=== PATIENT | male | born 1970 | race Two or more races ===

== ENCOUNTER 2020-04-22 17:16 | Outpatient (REF) | payer OTHER, SELFPAY | END 2020-04-22 17:17 | disposition home or self-care (01) | LOC: HO.LAB 17:16 | PROVIDERS: PCP Internal Medicine; Visit Provider Internal Medicine | DX: Z20.828 Contact with and (suspected) exposure to other viral communicable diseases (principal) | CPT/HCPCS: C9803; U0003 ==

== ENCOUNTER 2020-07-28 08:04 | Outpatient (REF) | payer OTHER, SELFPAY ==
[2020-07-28 09:24] LABS: Alanine Aminotransferase 30 U/L (0-40); Albumin Level 4.3 g/dL (3.5-5.0); Alkaline Phosphatase 115 U/L (39-117); Anion Gap 11 (12-20); Aspartate Amino Transferase 28 U/L (5-37); Bilirubin Total < 0.2 mg/dL (0.0-1.0); Blood Urea Nitrogen 12 mg/dL (9-16); Carbon Dioxide 27 mmol/L (22-29); Chloride 105 mmol/L (96-108); Cholesterol 201 mg/dL; Estimated Glomerular Filt Rate > 60; Glucose Fasting 119 mg/dL (60-99); HDL Cholesterol 48 mg/dL; LDL Cholesterol Calculated 121 mg/dl; Potassium 4.3 mmol/L (3.3-5.1); Sodium 139 mmol/L (135-145); Total Protein 7.4 g/dL (6.5-8.0); Triglycerides 163 mg/dL
== END 2020-07-28 08:05 | disposition home or self-care (01) ==
LOC: HO.LAB 08:04
PROVIDERS: PCP Internal Medicine; Visit Provider Internal Medicine
DX: I10 Essential (primary) hypertension (principal); E78.5 Hyperlipidemia, unspecified
CPT/HCPCS: 36415; 80053; 80061

== ENCOUNTER 2021-03-17 06:28 | Outpatient (REF) | payer OTHER, SELFPAY ==
[2021-03-17 08:05] LABS: Alanine Aminotransferase 34 U/L (0-40); Albumin Level 4.3 g/dL (3.5-5.0); Alkaline Phosphatase 119 U/L (39-117); Anion Gap 11 (12-20); Aspartate Amino Transferase 23 U/L (5-37); Bilirubin Total 0.3 mg/dL (0.0-1.0); Blood Urea Nitrogen 10 mg/dL (9-16); Calcium 8.9 mg/dL (8.4-10.2); Carbon Dioxide 27 mmol/L (22-29); Chloride 105 mmol/L (96-108); Cholesterol 175 mg/dL; Estimated Glomerular Filt Rate > 60; Glucose Fasting 113 mg/dL (60-99); HDL Cholesterol 43 mg/dL; LDL Cholesterol Calculated 109 mg/dl; Potassium 4.2 mmol/L (3.3-5.1); Sodium 139 mmol/L (135-145); Total Protein 7.4 g/dL (6.5-8.0); Triglycerides 116 mg/dL
== END 2021-03-17 06:29 | disposition home or self-care (01) ==
LOC: HO.LAB 06:28
PROVIDERS: PCP Internal Medicine; Visit Provider Internal Medicine
DX: E78.5 Hyperlipidemia, unspecified (principal); R73.02 Impaired glucose tolerance (oral)
CPT/HCPCS: 36415; 80053; 80061

== ENCOUNTER 2021-11-20 06:26 | Outpatient (REF) | payer OTHER, SELFPAY ==
[2021-11-20 07:46] LABS: Alanine Aminotransferase 29 U/L (0-40); Albumin Level 4.3 g/dL (3.5-5.0); Alkaline Phosphatase 121 U/L (39-117); Anion Gap 14 (12-20); Aspartate Amino Transferase 25 U/L (5-37); Bilirubin Total 0.3 mg/dL (0.0-1.0); Blood Urea Nitrogen 12 mg/dL (9-16); Calcium 8.6 mg/dL (8.4-10.2); Carbon Dioxide 25 mmol/L (22-29); Chloride 106 mmol/L (96-108); Cholesterol 211 mg/dL; Estimated Glomerular Filt Rate > 60; Glucose Fasting 111 mg/dL (60-99); HDL Cholesterol 41 mg/dL; LDL Cholesterol Calculated 130 mg/dl; Potassium 4.1 mmol/L (3.3-5.1); Sodium 141 mmol/L (135-145); Total Protein 7.5 g/dL (6.5-8.0); Triglycerides 204 mg/dL
== END 2021-11-20 06:27 | disposition home or self-care (01) ==
LOC: HO.LAB 06:26
PROVIDERS: PCP Internal Medicine; Visit Provider Internal Medicine
DX: E78.5 Hyperlipidemia, unspecified (principal); R73.02 Impaired glucose tolerance (oral); I10 Essential (primary) hypertension
CPT/HCPCS: 36415; 80053; 80061

== ENCOUNTER 2022-03-17 06:49 | Outpatient (REF) | payer OTHER, SELFPAY ==
[2022-03-17 07:51] LABS: Alanine Aminotransferase 31 U/L (0-40); Albumin Level 4.6 g/dL (3.5-5.0); Alkaline Phosphatase 144 U/L (39-117); Anion Gap 17 (12-20); Aspartate Amino Transferase 22 U/L (5-37); Bilirubin Total 0.3 mg/dL (0.0-1.0); Blood Urea Nitrogen 13 mg/dL (9-16); Calcium 9.3 mg/dL (8.4-10.2); Carbon Dioxide 24 mmol/L (22-29); Chloride 104 mmol/L (96-108); Cholesterol 175 mg/dL; Estimated Glomerular Filt Rate > 60; Glucose Fasting 112 mg/dL (60-99); HDL Cholesterol 45 mg/dL; LDL Cholesterol Calculated 100 mg/dl; Potassium 4.4 mmol/L (3.3-5.1); Sodium 141 mmol/L (135-145); Total Protein 7.9 g/dL (6.5-8.0); Triglycerides 154 mg/dL
== END 2022-03-17 06:50 | disposition home or self-care (01) ==
LOC: HO.LAB 06:49
PROVIDERS: PCP Internal Medicine; Visit Provider Internal Medicine
DX: I10 Essential (primary) hypertension (principal); E78.5 Hyperlipidemia, unspecified; Z12.5 Encounter for screening for malignant neoplasm of prostate
CPT/HCPCS: 36415; 80053; 80061; 84153

== ENCOUNTER 2022-08-02 07:05 | Outpatient (REF) | payer OTHER, SELFPAY ==
[2022-08-02 08:30] LABS: Alanine Aminotransferase 25 U/L (0-40); Albumin Level 4.1 g/dL (3.5-5.0); Alkaline Phosphatase 119 U/L (39-117); Anion Gap 13 (12-20); Aspartate Amino Transferase 17 U/L (5-37); Bilirubin Total 0.3 mg/dL (0.0-1.0); Blood Urea Nitrogen 13 mg/dL (9-16); Calcium 8.9 mg/dL (8.4-10.2); Carbon Dioxide 24 mmol/L (22-29); Chloride 108 mmol/L (96-108); Cholesterol 154 mg/dL; Estimated Glomerular Filt Rate > 60; Glucose Fasting 108 mg/dL (60-99); HDL Cholesterol 40 mg/dL; LDL Cholesterol Calculated 92 mg/dl; Potassium 4.2 mmol/L (3.3-5.1); Sodium 141 mmol/L (135-145); Total Protein 6.9 g/dL (6.5-8.0); Triglycerides 113 mg/dL
== END 2022-08-02 07:06 | disposition home or self-care (01) ==
LOC: HO.LAB 07:05
PROVIDERS: PCP Internal Medicine; Visit Provider Internal Medicine
DX: I10 Essential (primary) hypertension (principal); E78.5 Hyperlipidemia, unspecified
CPT/HCPCS: 36415; 80053; 80061

== ENCOUNTER 2022-12-01 16:56 | Outpatient (AMB) | payer OTHER, SELFPAY ==
[2022-12-01 17:12] VITALS: BP 134/80; BMI 37.8
--- NOTE | 2022-12-01 17:12 | A.OFFPC_ITS ---
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 Accompanied by: Self / Same As Patient Allergies lisinopril Adverse Reaction (Intermediate, Verified 12/01/22 17:36) cough Medication List - Last Reconciled 12/01/22 by Elizabeth Paet MD amlodipine 5 mg PO DAILY 90 days atorvastatin 80 mg PO BEDTIME 90 days ibuprofen 800 mg PO Q8H PRN 30 days losartan 50 mg PO DAILY 90 days Tobacco use date assessed: 08/04/22 Dental Screening Dental Screen Date: 12/01/22 Did you have a dental visit in the last 12 months?: Yes Did you have a dental problem in the last 6 months where you did not have access to dental care?: No Was dental information given to patient?: Patient has dentist HPI HPI Comments History of Present Illness Details This is a 52 year old male that comes for his physical exam. Has never had a colonoscopy and I will refer him again. Labs were discussed. No chest pain or shortness of breath. [facility] Medical History BMI 38.0-38.9,adult Chronic GERD Dyslipidemia Essential hypertension History of alcohol abuse Impaired glucose tolerance Surgical History History of laparoscopic appendectomy Family History Father Prostate cancer Mother Breast cancer Colon cancer Social History Housing: House Alcohol intake: current Alcohol intake frequency: a few times a month Alcohol type: beer Patient Tobacco Use Status: Current everyday Tobacco user Tobacco use type: Cigarette Cigarettes Per Day: 5 e-Cigarette/Vaping Use: Never Used Second Hand Smoke Exposure: No service: No Current occupational status: employed Current occupational exposures/hazards: No Cognitive needs: No Hearing needs: No Vision needs: No Questionnaire Thrive Questionnaire Date Thrive assessed: 08/04/22 ISAAC-7 AMB Questionnaire ISAAC-7 Date ISAAC - 7 assessed: 08/04/22 Source: Developed by Drs. Juan Kat, Luisa Bob, Williams Campos and colleagues, with an educational kam from [facility]. Review of Systems Const All systems reviewed & are unremarkable except as noted in HPI and below Eyes Reports no additional complaints, Denies change in vision and Denies other visual disturbances Card Denies chest pain at rest, Denies chest pain with activity, Denies edema, Denies irregular heart rhythm, Denies claudication, Denies dyspnea, Denies dyspnea on exertion, Denies orthopnea, Denies paroxysmal nocturnal dyspnea and Denies slow heart rate Resp Denies cough, Denies dyspnea and Denies dyspnea on exertion GI Denies abdominal pain, Denies change in bowel habits, Denies excessive flatus, Denies nausea and Denies vomiting Denies urinary hesitancy, Denies urinary incontinence and Denies urinary urgency Musc Denies abnormal gait, Denies atrophy, Denies deformity and Denies limited range of motion Skin/Breast Denies bleeding lesions, Denies changing lesions and Denies rash Neuro Denies abnormal gait and Denies lack of coordination Physical exam (Primary Care) Vital Signs: Last Vital Signs BP 134/80 12/01/22 17:12 BMI result Body Mass Index 37.8 Tobacco/Smoking Status: Tobacco use Status Tobacco use date assessed 08/04/22 12/01/22 17:25 Patient Tobacco Use Status Current everyday Tobacco 12/01/22 17:25 Tobacco use type Cigarette 12/01/22 17:25 e-Cigarette/Vaping Use Never Used 12/01/22 17:25 Thrive Assessment: Date of Thrive Assessment Date Thrive assessed 08/04/22 12/01/22 17:25 Const Orientation/consciousness: patient oriented x3 HENMT Head: Yes normal to inspection, Yes normocephalic and Yes atraumatic Ears: external ears normal Eyes General: appearance normal, both eyes and all related structures Eyelids: Yes eyelids normal Conjunctivae: conjunctivae normal Neck Neck: Yes normal visual inspection and Yes supple Resp Effort & Inspection: normal respiratory effort Auscultation: clear to auscultation bilaterally Cardio Jugular venous distension: no JVD Rate: regular rate Rhythm: regular rhythm Heart sounds: S1 normal heart sound present and S2 normal heart sound present GI Inspection: Yes normal to inspection Palpation (GI): Soft to palpation and nontender Auscultation: normal bowel sounds Skin General skin exam: no rashes or lesions noted Neuro General: patient oriented x3 and no focal motor deficits Extrem General: Yes full ROM Psych Appearance: grossly normal Assessment and Plan Assessment & Plan (1) Physical exam: Code(s): Z00.00 - Encounter for general adult medical examination without abnormal findings Plan: Repeat in a year. Orders: Orders Comprehensive [place]. Panel Fast Today Z00.00 - Encounter for general adult medical examination without abnormal findings Lipid Panel Today E78.5 - Hyperlipidemia, unspecified Referrals Gastroenterology Referral Z12.11 - Encounter for screening for malignant neoplasm of colon Coding Level of Care Code Est Pt Prev Care 40-64y(64587) Diagnoses Physical exam Z00.00 Time Spent (min) 31
== END 2022-12-01 17:51 | disposition home or self-care (01) ==
PROVIDERS: PCP Internal Medicine; Visit Provider Internal Medicine
DX: Z00.00 Encounter for general adult medical examination without abnormal findings (principal)
CPT/HCPCS: 99396

== ENCOUNTER 2023-04-05 07:10 | Outpatient (REF) | payer OTHER, SELFPAY ==
[2023-04-05 08:30] LABS: Alanine Aminotransferase 28 U/L (0-40); Albumin Level 4.3 g/dL (3.5-5.0); Alkaline Phosphatase 100 U/L (39-117); Anion Gap 11 (12-20); Aspartate Amino Transferase 23 U/L (5-37); Bilirubin Total 0.4 mg/dL (0.0-1.0); Blood Urea Nitrogen 9 mg/dL (9-16); Calcium 9.1 mg/dL (8.4-10.2); Carbon Dioxide 27 mmol/L (22-29); Chloride 104 mmol/L (96-108); Cholesterol 170 mg/dL (<200); Estimated Glomerular Filt Rate > 60; Glucose Fasting 114 mg/dL (60-99); HDL Cholesterol 46 mg/dL (>40); LDL Cholesterol Calculated 100 mg/dL (<100); Potassium 3.6 mmol/L (3.3-5.1); Sodium 138 mmol/L (135-145); Total Protein 7.7 g/dL (6.5-8.0); Triglycerides 124 mg/dL (<150)
== END 2023-04-05 07:11 | disposition home or self-care (01) ==
LOC: HO.LAB 07:10
PROVIDERS: PCP Internal Medicine; Visit Provider Internal Medicine
DX: Z00.00 Encounter for general adult medical examination without abnormal findings (principal); E78.5 Hyperlipidemia, unspecified
CPT/HCPCS: 36415; 80053; 80061

== ENCOUNTER 2023-04-11 17:01 | Outpatient (AMB) | payer OTHER, SELFPAY ==
--- NOTE | 2023-04-11 17:04 | A.OFFPC_ITS ---
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 Accompanied by: Self / Same As Patient Allergies lisinopril Adverse Reaction (Intermediate, Verified 04/11/23 17:11) cough Medication List - Last Reconciled 04/11/23 by Elizabeth Pate MD amlodipine 5 mg PO DAILY 90 days atorvastatin 80 mg PO BEDTIME 90 days ibuprofen 800 mg PO Q8H PRN 30 days losartan 50 mg PO DAILY 90 days Tobacco use date assessed: 08/04/22 Dental Screening Dental Screen Date: 04/11/23 Did you have a dental visit in the last 12 months?: No Did you have a dental problem in the last 6 months where you did not have access to dental care?: No Was dental information given to patient?: Patient has dentist HPI HPI Comments History of Present Illness Details This is a 53 year old male with hypertension, pure hypercholesterol emia, impaired glucose tolerance and lumbar pain that comes today for follow-up on his conditions. Cholesterol well control. Blood pressure stable. Elevated fasting blood glucose but denies any polyuria or polydipsia. Complains of some lumbar pain aggravated by activity with no radiation to the legs that is alleviated by ibuprofen as needed. No fever, bowel or bladder incontinence. No chest pain or shortness of breath. [facility] Medical History Chronic GERD BMI 38.0-38.9,adult Impaired glucose tolerance History of alcohol abuse Dyslipidemia Essential hypertension Surgical History History of laparoscopic appendectomy Family History Father Prostate cancer Mother Breast cancer Colon cancer Social History Housing: House Alcohol intake: current Alcohol intake frequency: a few times a month Alcohol type: beer Patient Tobacco Use Status: Current everyday Tobacco user Tobacco use type: Cigarette Cigarettes Per Day: 5 e-Cigarette/Vaping Use: Never Used Second Hand Smoke Exposure: No service: No Current occupational status: employed Current occupational exposures/hazards: No Cognitive needs: No Hearing needs: No Vision needs: No Questionnaire Thrive Questionnaire Date Thrive assessed: 08/04/22 ISAAC-7 AMB Questionnaire ISAAC-7 Date ISAAC - 7 assessed: 08/04/22 Source: Developed by Drs. Juan Kat, Luisa Bob, Williams Campos and colleagues, with an educational kam from [employer]. Review of Systems Const All systems reviewed & are unremarkable except as noted in HPI and below Eyes Reports no additional complaints, Denies change in vision and Denies other visual disturbances Card Denies chest pain at rest, Denies chest pain with activity, Denies edema, Denies irregular heart rhythm, Denies claudication, Denies dyspnea, Denies dyspnea on exertion, Denies orthopnea, Denies paroxysmal nocturnal dyspnea and Denies slow heart rate Resp Denies cough, Denies dyspnea and Denies dyspnea on exertion GI Denies abdominal pain, Denies change in bowel habits, Denies excessive flatus, Denies nausea and Denies vomiting Denies urinary hesitancy, Denies urinary incontinence and Denies urinary urgency Musc Denies abnormal gait, Denies atrophy, Denies deformity and Denies limited range of motion Skin/Breast Denies bleeding lesions, Denies changing lesions and Denies rash Neuro Denies abnormal gait and Denies lack of coordination Physical exam (Primary Care) Vital Signs: Last Vital Signs BP 130/90 H 04/11/23 17:05 BMI result Body Mass Index 37.9 Tobacco/Smoking Status: Tobacco use Status Tobacco use date assessed 08/04/22 04/11/23 17:10 Patient Tobacco Use Status Current everyday Tobacco 04/11/23 17:10 Tobacco use type Cigarette 04/11/23 17:10 e-Cigarette/Vaping Use Never Used 04/11/23 17:10 Thrive Assessment: Date of Thrive Assessment Date Thrive assessed 08/04/22 04/11/23 17:10 Eyes General: appearance normal, both eyes and all related structures Eyelids: Yes eyelids normal Conjunctivae: conjunctivae normal Neck Neck: Yes normal visual inspection and Yes supple Resp Effort & Inspection: normal respiratory effort Auscultation: clear to auscultation bilaterally Cardio Jugular venous distension: no JVD Rate: regular rate Rhythm: regular rhythm Heart sounds: S1 normal heart sound present and S2 normal heart sound present Extrem General: Yes full ROM Office Procedures Flu Questionnaire Does the patient have a severe egg allergy?: No Immunizations flu vacc [id number] 6mos up(PF) 60 mcg(15 mcgx4)/0.5 mL IM syringe Performing Provider: Elizabeth Pate MD [facility] [place] Documented (not given) by: CARMELLA Norris on 04/11/23 17:11 Reason Not Given: Patient Refused Assessment and Plan Assessment & Plan (1) Essential hypertension: Code(s): I10 - Essential (primary) hypertension Plan: Continue amlodipine and losartan. Blood pressure goal is equal or less than 130/80. (2) Dyslipidemia: Code(s): E78.5 - Hyperlipidemia, unspecified Plan: Continue statins. (3) Impaired glucose tolerance: Code(s): R73.02 - Impaired glucose tolerance (oral) Plan: Try to follow a low-carbohydrate diet. (4) Lumbar pain: Code(s): M54.50 - Low back pain, unspecified Plan: Continue ibuprofen only for severe pain as needed. Orders: Orders Influenza [id number] Immunization Today Z23 - Encounter for immunization Comprehensive [place]. Panel Fast 7 Months R73.02 - Impaired glucose tolerance (oral) Lipid Panel 7 Months E78.5 - Hyperlipidemia, unspecified Vitamin D 25-OH Total 7 Months E55.9 - Vitamin D deficiency, unspecified Medications: Refilled atorvastatin 80 mg PO BEDTIME 90 tabs 1RF 90 days E78.5 - Hyperlipidemia, unspecified amlodipine 5 mg PO DAILY 90 tabs 1RF 90 days ibuprofen 800 mg PO Q8H PRN 90 tabs 0RF pain 30 days Coding Level of Care Code Est Pt Level 4 (48550) Diagnoses Essential hypertension I10 Dyslipidemia E78.5 Impaired glucose tolerance R73.02 Lumbar pain M54.50 Time Spent (min) 21
[2023-04-11 17:05] VITALS: BP 130/90; BMI 37.9
== END 2023-04-11 17:18 | disposition home or self-care (01) ==
PROVIDERS: PCP Internal Medicine; Visit Provider Internal Medicine
DX: I10 Essential (primary) hypertension (principal); E78.5 Hyperlipidemia, unspecified; R73.02 Impaired glucose tolerance (oral); M54.50 Low back pain, unspecified
CPT/HCPCS: 99214

== ENCOUNTER 2023-11-30 06:31 | Outpatient (REF) | payer OTHER, SELFPAY ==
[2023-11-30 07:34] LABS: Alanine Aminotransferase 29 U/L (0-40); Albumin Level 4.2 g/dL (3.5-5.0); Alkaline Phosphatase 113 U/L (39-117); Anion Gap 13 (12-20); Aspartate Amino Transferase 26 U/L (5-37); Bilirubin Total 0.5 mg/dL (0.0-1.0); Blood Urea Nitrogen 11 mg/dL (9-16); Calcium 9.3 mg/dL (8.4-10.2); Carbon Dioxide 25 mmol/L (22-29); Chloride 106 mmol/L (96-108); Cholesterol 195 mg/dL (<200); Estimated Glomerular Filt Rate > 60; Glucose Fasting 114 mg/dL (60-99); HDL Cholesterol 46 mg/dL (>40); LDL Cholesterol Calculated 118 mg/dL (<100); Potassium 4.1 mmol/L (3.3-5.1); Sodium 140 mmol/L (135-145); Total Protein 7.7 g/dL (6.5-8.0); Triglycerides 157 mg/dL (<150)
[2023-11-30 07:48] LABS: Vitamin D 25-OH Total 27.4 ng/mL (>30)
== END 2023-11-30 06:32 | disposition home or self-care (01) ==
LOC: HO.LAB 06:31
PROVIDERS: PCP Internal Medicine; Visit Provider Internal Medicine
DX: R73.02 Impaired glucose tolerance (oral) (principal); E78.5 Hyperlipidemia, unspecified; E55.9 Vitamin D deficiency, unspecified
CPT/HCPCS: 36415; 80053; 80061; 82306

== ENCOUNTER 2023-12-05 16:48 | Outpatient (AMB) | payer OTHER, SELFPAY ==
[2023-12-05 16:49] VITALS: BP 150/88; BMI 38.5
--- NOTE | 2023-12-05 16:49 | MHC.PC.OV ---
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 Accompanied by: Self / Same As Patient Allergies lisinopril Adverse Reaction (Intermediate, Verified 12/05/23 17:04) cough Medication List - Last Reconciled 12/05/23 by Elizabeth Pate MD amlodipine 5 mg PO DAILY 90 days atorvastatin 80 mg PO BEDTIME 90 days ibuprofen 800 mg PO Q8H PRN 30 days losartan 50 mg PO DAILY 90 days Tobacco use date assessed: 12/05/23 Dental Screening Dental Screen Date: 12/05/23 Did you have a dental visit in the last 12 months?: Yes Did you have a dental problem in the last 6 months where you did not have access to dental care?: No Was dental information given to patient?: Patient has dentist HPI HPI Comments History of Present Illness Details This is a 53-year-old male that comes for his physical exam. Has never had a colonoscopy and will be refer again. He is obese and was advised to diet and exercise. He is a smoker and was advised to quit. Blood pressure elevated and losartan will be increased. [facility] Medical History Chronic GERD BMI 38.0-38.9,adult Impaired glucose tolerance History of alcohol abuse Dyslipidemia Essential hypertension Surgical History History of laparoscopic appendectomy Family History Father Prostate cancer Mother Breast cancer Colon cancer Social History Housing: House Alcohol intake: current Alcohol intake frequency: a few times a month Alcohol type: beer Patient Tobacco Use Status: Current everyday Tobacco user Tobacco use type: Cigarette Cigarettes Per Day: 5 e-Cigarette/Vaping Use: Never Used Second Hand Smoke Exposure: No service: No Current occupational status: employed Current occupational exposures/hazards: No Cognitive needs: No Hearing needs: No Vision needs: No Questionnaire PHQ-9 Over the last 2 weeks, how often have you been bothered by any of the following problems? 1. Little interest or pleasure in doing things: not at all 2. Feeling down, depressed, or hopeless: not at all 3. Trouble falling or staying asleep, or sleeping too much: not at all 4. Feeling tired or having little energy: not at all 5. Poor appetite or overeating: not at all 6. Feeling bad about yourself - or that you are a failure or have let yourself or your family down: not at all 7. Trouble concentrating on things, such as reading the newspaper or watching television: not at all 8. Moving or speaking so slowly that other people could have noticed. Or the opposite - being so fidgety or restless that you have been moving around a lot more than usual: not at all 9. Thoughts that you would be better off or of hurting yourself in some way: not at all Total score: 0 Depression Screening Interpretation: Negative Depression Screening Done: Yes 46505 - PHQ-9 Billing: Yes Source: Developed by Drs. Juan Kat, Luisa Bob, Williams Campos and colleagues, with an educational kam from [employer]. Thrive Questionnaire Date Thrive assessed: 12/05/23 I am a: Patient What is your living situation today?: I have a steady place to live Within the past 12 months, did the food you bought not last and you didn't have the money to get more?: Never true Within the past 12 months, did you worry whether your food would run out before you got money to buy more?: Never true Do you have trouble paying for medicines?: No Do you have trouble getting transportation to medical appointments?: No Do you have trouble paying your heating and electricity bill?: No Do you have trouble taking care of your child, family member or friend?: No Do you have trouble with day-to-day activities such as bathing, preparing meals, shopping, managing finances, etc.?: No Are you currently unemployed and looking for a job?: No Are you interested in more education?: No Please select the resources that you would like help with: None Currently or been in a relationship where the following occur: No concerns reported THRIVE Score: 0 AUDIT C Alcohol Use Questionnaire (AUDIT-C) 1. How often do you have a drink containing alcohol?: 2-4 times a month 2. How many drinks containing alcohol do you have on a typical day when you are drinking?: 1 or 2 3. How often do you have six or more drinks on one occasion?: Never Total Score: 2 ISAAC-7 AMB Questionnaire ISAAC-7 Date ISAAC - 7 assessed: 12/05/23 Feeling nervous, anxious, or on edge: 0 = Not at all Not being able to stop or control worryin = Not at all Worrying too much about different things: 0 = Not at all Trouble relaxin = Not at all Being so restless that it is hard to sit still: 0 = Not at all Becoming easily annoyed or irritable: 0 = Not at all Feeling afraid as if something awful might happen: 0 = Not at all Total ISAAC-7 score (0-4 normal; 5-9 mild; 10-14 moderate; 15-21 severe): 0 Source: Developed by Drs. Juan Kat, Luisa Bob, Williams Campos and colleagues, with an educational kam from [employer]. ISAAC-7 Assessment Billing ISAAC-7 Assessment Tool: ISAAC-7 Assessment 45296 Review of Systems Const All systems reviewed & are unremarkable except as noted in HPI and below Card Denies chest pain at rest, Denies chest pain with activity, Denies edema, Denies irregular heart rhythm, Denies claudication, Denies dyspnea, Denies dyspnea on exertion, Denies orthopnea, Denies paroxysmal nocturnal dyspnea and Denies slow heart rate Resp Denies cough, Denies dyspnea and Denies dyspnea on exertion GI Denies abdominal pain, Denies change in bowel habits, Denies excessive flatus, Denies nausea and Denies vomiting Denies urinary hesitancy, Denies urinary incontinence and Denies urinary urgency Musc Denies atrophy, Denies deformity and Denies limited range of motion Physical exam (Primary Care) Vital Signs: Last Vital Signs BP 150/88 H 12/05/23 16:49 BMI result Body Mass Index 38.5 BMI Assessment/Plan discussion: High BMI High, discussed plan: lifestyle, weight reduction, dietary and physical activity Tobacco/Smoking Status: Tobacco use Status Tobacco use date assessed 12/05/23 12/05/23 16:50 Patient Tobacco Use Status Current everyday Tobacco 12/05/23 16:50 Tobacco use type Cigarette 12/05/23 16:50 e-Cigarette/Vaping Use Never Used 12/05/23 16:50 Are you ready to quit: No Tobacco cessation counseling provided: Yes Items discussed: [employer]uit[employer] Relapse Prevention: discussed the importance of a supportive environment, discussed negative mood or depression after quitting, weight gain after smoking is common and discussed dietary, exercise and/or lifestyle changes Number of minutes spent counselin CPT code: 97905 - 4-10 Minutes PHQ-9: PHQ-9 Score PHQ-9: Total score 0 12/05/23 16:56 Depression Screening Interpretation: Negative Thrive Assessment: Date of Thrive Assessment Date Thrive assessed 12/05/23 12/05/23 16:56 Currently or been in a relationship where the following occur: No concerns reported HENMT Head: Yes normal to inspection, Yes normocephalic and Yes atraumatic Ears: external ears normal Eyes General: appearance normal, both eyes and all related structures Eyelids: Yes eyelids normal Conjunctivae: conjunctivae normal Neck Neck: Yes normal visual inspection and Yes supple Resp Effort & Inspection: normal respiratory effort Auscultation: clear to auscultation bilaterally Cardio Jugular venous distension: no JVD Rate: regular rate Rhythm: regular rhythm Heart sounds: S1 normal heart sound present and S2 normal heart sound present GI Inspection: Yes normal to inspection Palpation (GI): Soft to palpation and nontender Auscultation: normal bowel sounds Skin General skin exam: no rashes or lesions noted Neuro General: no focal motor deficits Extrem General: Yes full ROM Psych Appearance: grossly normal Assessment and Plan Assessment & Plan (1) Physical exam: Code(s): Z00.00 - Encounter for general adult medical examination without abnormal findings Plan: Repeat in a year. Orders: Orders Lipid Panel 4 Months E78.5 - Hyperlipidemia, unspecified Comprehensive [place]. Panel Fast 4 Months Z00.00 - Encounter for general adult medical examination without abnormal findings Referrals Gastroenterology Referral Z12.11 - Encounter for screening for malignant neoplasm of colon Medications: New semaglutide (weight loss) (Wegovy) administer weeks 1 through 4 of therapy 0.25 mg (0.5 mL) subcut QWEEK 4 weeks 2 mL 0RF losartan 100 mg PO DAILY 90 days 90 tabs 1RF Discontinued losartan Discontinued Reason: Patient Completed Course 50 mg PO DAILY 90 days 90 tabs 1RF Coding Level of Care Code Est Pt Prev Care 40-64y(18900) Diagnoses Physical exam Z00.00 Additional Codes ISAAC-7 Assessment Billing - ISAAC-7 Assessment Tool: ISAAC-7 Assessment 66002 ([id number]) Vital Signs *Quality* - CPT code: 57158 - 4-10 Minutes ([id number]) Time Spent (min) 34
[2023-12-05 17:19] VITALS: BP 150/90
== END 2023-12-05 17:13 | disposition home or self-care (01) ==
PROVIDERS: PCP Internal Medicine; Visit Provider Internal Medicine
DX: Z00.00 Encounter for general adult medical examination without abnormal findings (principal); E66.9 Obesity, unspecified; Z68.38 Body mass index [BMI] 38.0-38.9, adult; I10 Essential (primary) hypertension
CPT/HCPCS: 99396

== ENCOUNTER 2024-02-23 11:01 | Outpatient (AMB) | payer OTHER, SELFPAY ==
[2024-02-23 11:02] VITALS: BP 142/82; PULSE 82; O2SAT 97; BMI 38.1
--- NOTE | 2024-02-23 11:02 | MHC.OFFVIS ---
Vital Signs 02/23/24 11:02 Height 5 ft 11 in Weight 272 lb 14.916 oz BMI 38.1 BP 142/82 H Blood Pressure Location Rt brachial Position Sitting Pulse 82 Pulse Source Pulse Oximeter Pulse Oximetry (%) 97 Oxygen Delivery Method Room Air Intake Visit Reasons: [place] Intake Note: Relevant Flags or Indicators ? Requires Continuous Mining Machine Coal Miner? Malissa Ibarra presents in office today for a scheduled colo consult. Pt had previous visit scheduled that was N/S'd. Pt has no previous hx of colo. CC; Since last visit; labs ordered ? via PCP within 6 mos. . Rx ordered ? yes/no. Diagnostics/images ordered ? none. Relevant GI Sx as reported per pt? None ? Hx of any recent surgeries? Pt denies any recent surgery. Does report pmhx of appendectomy quite some time ago. ? Pertinent FMHx? Mother (colon cancer) and Father (prostate cancer) Continuous Mining Machine Coal Miner Required: Yes Continuous Mining Machine Coal Miner Services: Continuous Mining Machine Coal Miner Present Continuous Mining Machine Coal Miner Name: [id number] Jaylin Allergies lisinopril Adverse Reaction (Intermediate, Verified 02/23/24 11:04) cough HPI HPI [place]: Details: 53-year-old male here for preprocedural meeting to discuss a screening colonoscopy. He is referred by Elizabeth Guzman of [facility] primary care. PMX Morbid obesity History of alcohol abuse Impaired fasting glucose High cholesterol Hypertension Low back pain * SURGICAL HISTORY Appendectomy * ALLERGIES Lisinopril-Cough * [facility] LABS: Laboratory Tests 11/30/23 06:39 Estimated GFR > 60 Total Bilirubin 0.5 AST 26 ALT 29 Alkaline Phosphatase 113 Lao #[id number] This is his first colonoscopy. He denies any bowel or upper GI problems. He denies any cardiac or respiratory problems He is fairly naive to anesthesia and sedation but he did not have any trouble with his appendectomy. No ID problems. He thinks that his mother had CRC, he has siblings who had scopes w/o polyps. [facility] Medical History (Updated 02/23/24 @ 12:44 by ISABELLE Khalil) Physical exam Screen for colon cancer Chronic GERD BMI 38.0-38.9,adult Impaired glucose tolerance History of alcohol abuse Dyslipidemia Essential hypertension Surgical History History of laparoscopic appendectomy Family History Father Prostate cancer Mother Breast cancer Colon cancer Social History Housing: House Alcohol intake: current Alcohol intake frequency: a few times a month Alcohol type: beer Patient Tobacco Use Status: Current everyday Tobacco user Tobacco use type: Cigarette Cigarettes Per Day: 5 e-Cigarette/Vaping Use: Never Used Second Hand Smoke Exposure: No service: No Current occupational status: employed Current occupational exposures/hazards: No Cognitive needs: No Hearing needs: No Vision needs: No Review of Systems Const Denies fatigue, Denies fever(s), Denies night sweats, Denies poor appetite and Denies weight loss Eyes Reports requires corrective lenses ENT Reports Normal hearing present, Denies dental pain, Denies dysphagia, Denies hearing loss, Denies mouth pain, Denies odynophagia, Denies throat swelling, Denies tongue swelling and Reports other (Dentition adequate) GI Details: Denies abdominal pain, Denies melena, Denies bloating, Denies hematochezia, Denies constipation, Denies GI cramping, Denies dysphagia, Denies excessive flatus, Denies early satiety, Denies heartburn, Denies diarrhea, Denies nausea, Denies odynophagia, Denies vomiting and Denies hematemesis Skin/Breast Denies pruritus, Denies lesions, Denies rash and Denies jaundice Neuro Reports Normal hearing present and Denies Abnormal speech present Endo Denies fatigue Aller/Immun Denies throat swelling and Denies tongue swelling Physical Exam Vital Signs: Last Vital Signs Pulse 82 02/23/24 11:02 BP 142/82 H 02/23/24 11:02 Pulse Ox 97 02/23/24 11:02 Oxygen Delivery Method Room Air 02/23/24 11:02 BMI result Body Mass Index 38.1 Const General: cooperative, no acute distress, well developed and well groomed Nutritional Appearance: well nourished and obese Orientation/consciousness: oriented to person, oriented to place and oriented to time Limitations: language barrier HEENT Head: Yes normocephalic and Yes atraumatic Eyes General: appearance normal, both eyes and all related structures Pupils: Equal, round and reactive pupils present Neck Neck: Yes normal visual inspection and Yes no lymphadenopathy Thyroid: Thyroid normal Resp Effort & Inspection: normal respiratory effort and able to speak in complete sentences Auscultation: clear to auscultation bilaterally Cardio Rate: regular rate Rhythm: regular rhythm Heart sounds: Normal, physiologic split S2 sound present Peripheral pulses: radial pulses present and posterior tibial pulses present GI Inspection: No distended, Yes Abdominal panniculus present, Yes obesity and Yes scar Palpation (GI): Soft to palpation, nontender, no guarding, not rigid and No hepatosplenomegaly present Percussion: Yes normal to percussion Auscultation: normal bowel sounds Rectal Exam - Male: Yes deferred Abdomen image: 1. surgical scar Skin General skin exam: no rashes or lesions noted, turgor normal, skin not dry, no jaundice, No spider nevi and no striae Rashes: no rashes Nails: normal Neuro General: oriented to person, oriented to place and oriented to time Cranial nerves: Yes Equal, round and reactive pupils present and Yes Normal hearing present Speech: No Abnormal speech present Extrem General: Yes normal to inspection, No clubbing, No cyanosis and No edema Psych Appearance: grossly normal and well kempt Mental Status: mental status grossly normal Speech and movement: Normal speech and movement present Affect: normal affect Attitude: cooperative Thought process: Normal thought process present and not confabulating Thought content: Normal thought content present Insight: Fair insight present (Psych) Judgement: Fair judgement present (Psych) Quality Reporting (2019) Adult ([facility] ) Smoking risk assessment performed?: Yes Patient Tobacco Use Status: Current everyday Tobacco user Assessment & Plan Assessment & Plan (1) Pre-op examination: Code(s): Z01.818 - Encounter for other preprocedural examination Category: Medical (2) BMI 38.0-38.9,adult: Code(s): Z68.38 - Body mass index [BMI] 38.0-38.9, adult Category: Medical (3) Family history of colon cancer in mother: Code(s): Z80.0 - Family history of malignant neoplasm of digestive organs Category: Medical Plan Lao #[id number] This is his first colonoscopy. He denies any bowel or upper GI problems. He denies any cardiac or respiratory problems He is fairly naive to anesthesia and sedation but he did not have any trouble with his appendectomy. No ID problems. He thinks that his mother had CRC, he has siblings who had scopes w/o polyps. Orders: Orders Colonoscopy - GI Use Only Today Z68.38 - Body mass index [BMI] 38.0-38.9, adult Medications: New sodium,potassium,mag sulfates 17.5-3.13-1.6 gram (Suprep Bowel Prep Kit) 480 mL orally; FOR COLONOSCOPY PREP 354 mL 0RF Coding Level of Care Code New Pt Level 3 (33282) Diagnoses Pre-op examination Z01.818 BMI 38.0-38.9,adult Z68.38 Family history of colon cancer in mother Z80.0
== END 2024-02-23 11:56 | disposition home or self-care (01) ==
PROVIDERS: PCP Internal Medicine; Visit Provider Nurse Practitioner
DX: Z01.818 Encounter for other preprocedural examination (principal); Z68.38 Body mass index [BMI] 38.0-38.9, adult; Z80.0 Family history of malignant neoplasm of digestive organs
CPT/HCPCS: 99203

== ENCOUNTER → 2024-02-23 11:01 | Outpatient (BNVA) | payer OTHER, SELFPAY | PROVIDERS: PCP Internal Medicine; Visit Provider Nurse Practitioner | DX: Z01.818 Encounter for other preprocedural examination (principal); E66.01 Morbid (severe) obesity due to excess calories; Z80.0 Family history of malignant neoplasm of digestive organs; Z68.38 Body mass index [BMI] 38.0-38.9, adult | CPT/HCPCS: 99202 ==

== ENCOUNTER 2024-03-28 07:23 | Outpatient (REF) | payer OTHER, SELFPAY ==
[2024-03-28 08:31] LABS: Alanine Aminotransferase 32 U/L (0-40); Albumin Level 4.3 g/dL (3.5-5.0); Alkaline Phosphatase 102 U/L (39-117); Anion Gap 11 (12-20); Aspartate Amino Transferase 28 U/L (5-37); Bilirubin Total 0.4 mg/dL (0.0-1.0); Blood Urea Nitrogen 13 mg/dL (9-16); Calcium 9.1 mg/dL (8.4-10.2); Carbon Dioxide 26 mmol/L (22-29); Chloride 107 mmol/L (96-108); Cholesterol 110 mg/dL (<200); Estimated Glomerular Filt Rate > 60; Glucose Fasting 104 mg/dL (60-99); HDL Cholesterol 36 mg/dL (>40); LDL Cholesterol Calculated 61 mg/dL (<100); Potassium 3.9 mmol/L (3.3-5.1); Sodium 140 mmol/L (135-145); Total Protein 7.4 g/dL (6.5-8.0); Triglycerides 68 mg/dL (<150)
== END 2024-03-28 07:24 | disposition home or self-care (01) ==
LOC: HO.LAB 07:23
PROVIDERS: PCP Internal Medicine; Visit Provider Internal Medicine
DX: Z00.00 Encounter for general adult medical examination without abnormal findings (principal); E78.5 Hyperlipidemia, unspecified
CPT/HCPCS: 36415; 80053; 80061

== ENCOUNTER 2024-04-02 16:45 | Outpatient (AMB) | payer OTHER, SELFPAY ==
--- NOTE | 2024-04-02 17:05 | A.OFFPC_ITS ---
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 Required: No Accompanied by: Self / Same As Patient Allergies lisinopril Adverse Reaction (Intermediate, Verified 04/02/24 17:25) cough Medication List - Last Reconciled 04/02/24 by Elizabeth Pate MD amlodipine 5 mg PO DAILY 90 days atorvastatin 80 mg PO BEDTIME 90 days ibuprofen 800 mg PO Q8H PRN 30 days losartan 100 mg PO DAILY 90 days semaglutide (weight loss) (Wegovy) 1 mg (0.5 mL) subcut QWEEK 4 weeks semaglutide (weight loss) (Wegovy) 1.7 mg (0.75 mL) subcut QWEEK 4 weeks sodium,potassium,mag sulfates 17.5-3.13-1.6 gram (Suprep Bowel Prep Kit) 480 mL orally; FOR COLONOSCOPY PREP Tobacco use date assessed: 12/05/23 Dental Screening Dental Screen Date: 12/05/23 HPI HPI Comments History of Present Illness Details The patient is a 54-year-old male presenting with a follow-up visit for management of essential hypertension, hyperlipidemia, and obesity. The patient has been under treatment for hypertension with Amlodipine 5 mg daily and Losartan 100 mg daily. At the current visit, blood pressure readings are noted to be excellent at 122/80 mmHg. He was diagnosed with hyperlipidemia and is being treated with Atorvastatin 80 mg nightly, which has resulted in a significant reduction in cholesterol levels from 195 mg/dL to 110 mg/dL. The patient is also managing obesity and has been on Wegovy starting at 1 mg weekly, now increased to 1.7 mg weekly, with a noted weight loss from 276 lbs in November to 259 lbs at present. He denies current use of Lisinopril due to a confirmed allergy. Back pain is managed with Ibuprofen 800 mg as needed. The patient continues to smoke cigarettes, approximately one every three days, and has not yet committed to smoking cessation despite discussing available resources. Renal function tests have shown a GFR of greater than 60 mL/min/1.73 m? and serum glucose levels have decreased from 114 mg/dL to 104 mg/dL. [facility] Medical History Physical exam Screen for colon cancer Chronic GERD BMI 38.0-38.9,adult Impaired glucose tolerance History of alcohol abuse Dyslipidemia Essential hypertension Surgical History History of laparoscopic appendectomy Family History Father Prostate cancer Mother Breast cancer Colon cancer Social History Housing: House Alcohol intake: current Alcohol intake frequency: a few times a month Alcohol type: beer Patient Tobacco Use Status: Current everyday Tobacco user Tobacco use type: Cigarette Cigarettes Per Day: 5 e-Cigarette/Vaping Use: Never Used Second Hand Smoke Exposure: No service: No Current occupational status: employed Current occupational exposures/hazards: No Cognitive needs: No Hearing needs: No Vision needs: No Questionnaire Thrive Questionnaire Date Thrive assessed: 12/05/23 ISAAC-7 AMB Questionnaire ISAAC-7 Date ISAAC - 7 assessed: 12/05/23 Source: Developed by Drs. Juan Kat, Luisa Bob, Williams Campos and colleagues, with an educational kam from [employer]. Review of Systems Const All systems reviewed & are unremarkable except as noted in HPI and below Card Denies chest pain at rest, Denies chest pain with activity, Denies edema, Denies irregular heart rhythm, Denies claudication, Denies dyspnea, Denies dyspnea on exertion, Denies orthopnea, Denies paroxysmal nocturnal dyspnea and Denies slow heart rate Resp Denies cough, Denies dyspnea and Denies dyspnea on exertion GI Denies abdominal pain, Denies change in bowel habits, Denies excessive flatus, Denies nausea and Denies vomiting Denies urinary hesitancy, Denies urinary incontinence and Denies urinary urgency Musc Denies abnormal gait, Denies atrophy, Denies deformity and Denies limited range of motion Skin/Breast Denies bleeding lesions, Denies changing lesions and Denies rash Neuro Denies abnormal gait and Denies lack of coordination Physical exam (Primary Care) Vital Signs: Last Vital Signs BP 122/80 04/02/24 17:07 BMI result Body Mass Index 36.1 BMI Assessment/Plan discussion: High BMI High, discussed plan: lifestyle, weight reduction, dietary and physical activity Tobacco/Smoking Status: Tobacco use Status Tobacco use date assessed 12/05/23 04/02/24 17:11 Patient Tobacco Use Status Current everyday Tobacco 04/02/24 17:11 Tobacco use type Cigarette 04/02/24 17:11 e-Cigarette/Vaping Use Never Used 04/02/24 17:11 Are you ready to quit: No Tobacco cessation counseling provided: Yes Items discussed: Nicotine replacement and [employer]uitWorks Relapse Prevention: discussed the importance of a supportive environment, discussed extending NRT, discussed negative mood or depression after quitting, weight gain after smoking is common and discussed dietary, exercise and/or lifestyle changes Number of minutes spent counselin CPT code: 70854 - 4-10 Minutes Thrive Assessment: Date of Thrive Assessment Date Thrive assessed 12/05/23 04/02/24 17:11 Resp Effort & Inspection: normal respiratory effort Auscultation: clear to auscultation bilaterally Cardio Jugular venous distension: no JVD Rate: regular rate Rhythm: regular rhythm Heart sounds: S1 normal heart sound present and S2 normal heart sound present Extrem General: Yes full ROM Office Procedures Flu Questionnaire Does the patient have a severe egg allergy?: No Immunizations Fluarix Triv [id number] (PF) 45 mcg (15 mcg x 3)/0.5 mL IM syringe Performing Provider: Elizabeth Pate MD [place] [facility] [place] [facility] Documented (not given) by: CARMELLA Norris on 04/02/24 17:12 Reason Not Given: Patient Refused Coding Level of Care Code Est Pt Level 4 (21126) Complex EM visit Add On G2211 Diagnoses Lumbar pain M54.50 Essential hypertension I10 Dyslipidemia E78.5 Chronic GERD K21.9 Additional Codes Vital Signs *Quality* - CPT code: 23934 - 4-10 Minutes ([id number]) Time Spent (min) 24 Assessment & Plan Assessment & Plan (1) Lumbar pain: Code(s): M54.50 - Low back pain, unspecified Category: Medical (2) Essential hypertension: Code(s): I10 - Essential (primary) hypertension Category: Medical (3) Dyslipidemia: Code(s): E78.5 - Hyperlipidemia, unspecified Category: Medical (4) Chronic GERD: Code(s): K21.9 - Gastro-esophageal reflux disease without esophagitis Category: Medical Plan - 2.4 mg weekly for obesity if well-tolerated, monitor for nausea, vomiting, diarrhea; revert to 1.7 mg if necessary: - Discuss smoking cessation options further and encourage lifestyle modifications to support weight management. - Schedule colonoscopy in June as planned. - Routine lab evaluations in four months to assess metabolic parameters. Patient was informed and verbally consented to the use of an ambient scribe for clinic note documentation during this visit. During our discussion, I reaffirmed the management strategies for essential hypertension, hyperlipidemia, and obesity, noting the effectiveness of current therapies in controlling blood pressure and cholesterol levels. I explained the transition plan to Wegovy 2.4 mg, highlighting potential side effects such as nausea and the need to revert if side effects are intolerable. I provided various resources for smoking cessation, including nicotine patches and online support through [employer]. We also discussed the upcoming colonoscopy and I underscored the importance of consistent follow-up and monitoring his condition at regular intervals to ensure comprehensive care. He is aware of the next appointment timeline and the specific labs to be repeated to track his health improvements. Orders: Orders Influenza [id number] Immunization Today Z23 - Encounter for immunization Comprehensive [place]. Panel Fast 4 Months K21.9 - Gastro-esophageal reflux disease without esophagitis Lipid Panel 4 Months E78.5 - Hyperlipidemia, unspecified Medications: New semaglutide (weight loss) (Wegovy) 2.4 mg (0.75 mL) subcut QWEEK 3 mL 1RF 4 weeks Discontinued semaglutide (weight loss) (Wegovy) administer weeks 9 through 12 of therapy Discontinued Reason: Patient Completed Course 1 mg (0.5 mL) subcut QWEEK 4 weeks 2 mL 1RF E66.9 - Obesity, unspecified, E78.5 - Hyperlipidemia, unspecified, I10 - Essential (primary) hypertension, Z68.37 - Body mass index [BMI] 37.0-37.9, adult Patient Instructions: - Continue current medications as prescribed. - Monitor blood pressure at home and report any significant changes. - Increase Wegovy to 2.4 mg weekly when able; note any adverse effects. - Consider smoking cessation options provided; monitor weight to prevent gain if cessation occurs. - Return for labs in four months and for colonoscopy appointment in June. - Maintain a healthy lifestyle and monitor dietary habits to support overall health.
[2024-04-02 17:07] VITALS: BP 122/80; BMI 36.1
== END 2024-04-02 17:34 | disposition home or self-care (01) ==
PROVIDERS: PCP Internal Medicine; Visit Provider Internal Medicine
DX: M54.50 Low back pain, unspecified (principal); I10 Essential (primary) hypertension; E78.5 Hyperlipidemia, unspecified; K21.9 Gastro-esophageal reflux disease without esophagitis; Z23 Encounter for immunization

== ENCOUNTER → 2024-04-02 16:45 | Outpatient (BNVA) | payer OTHER, SELFPAY | PROVIDERS: PCP Internal Medicine; Visit Provider Internal Medicine | DX: M54.50 Low back pain, unspecified (principal); I10 Essential (primary) hypertension; E78.5 Hyperlipidemia, unspecified; K21.9 Gastro-esophageal reflux disease without esophagitis | CPT/HCPCS: 90471; 99212 ==

== ENCOUNTER → 2024-07-20 15:00 | Outpatient (BNVA) | payer OTHER, SELFPAY | PROVIDERS: PCP Internal Medicine; Visit Provider Surgery ==

== ENCOUNTER 2024-08-06 08:13 | Outpatient (AMB) | payer OTHER, SELFPAY ==
[2024-08-06 11:43] VITALS: BMI 34.6
--- NOTE | 2024-08-06 11:43 | A.OFFVIS_ITS ---
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* Can Filling And Closing Machine Tender Required: Yes Can Filling And Closing Machine Tender Services: Can Filling And Closing Machine Tender Present Information Interpreted: clinical only Allergies lisinopril Adverse Reaction (Intermediate, Verified 08/06/24 11:46) cough Medication List - Last Reconciled 08/06/24 by Lucio Palmer MD amlodipine 5 mg PO DAILY 90 days atorvastatin 80 mg PO BEDTIME 90 days ibuprofen 800 mg PO Q8H PRN 30 days losartan 100 mg PO DAILY 90 days HPI HPI 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*: Details: Start time: 11.33am, End time: 12.03pm ?I spent 25 minutes speaking with the patient on the phone plus an additional 5 minutes reviewing and updating records for a total of 30 minutes HPI Comments Details: Previous weight loss efforts: David 28lbs December 2023 to July 2024 Wakes up: 4.30am, Sleeps: 10pm Breakfast: 6am (Bagel) Lunch: 12pm (rice, or Subway sandwich) Dinner: 5pm (rice and chicken) Snacks: 7-8pm (crackers) Exercise: none Beverages: Coffee (1 cup/d with cream and sugar), tea: none, soda: none, juice: Gatorade, ETOH: none PFSH Medical History (Updated 08/06/24 @ 11:56 by Lucio Palmer MD) DJD (degenerative joint disease) BMI 34.0-34.9,adult Obesity Physical exam Screen for colon cancer Chronic GERD BMI 38.0-38.9,adult Impaired glucose tolerance History of alcohol abuse Dyslipidemia Essential hypertension Surgical History History of laparoscopic appendectomy Family History Father Prostate cancer Mother Breast cancer Colon cancer Social History (Updated 07/20/24 @ 15:36 by Cathie Tubbs [facility]) Housing: House Alcohol intake: former Patient Tobacco Use Status: Current everyday Tobacco user Tobacco use type: Cigarette Cigarettes Per Day: 5 e-Cigarette/Vaping Use: Never Used Second Hand Smoke Exposure: No service: No Current occupational status: employed Current occupational exposures/hazards: No Cognitive needs: No Hearing needs: No Vision needs: No Physical Exam Vital Signs: BMI result Body Mass Index 34.6 Quality Reporting (2019) Adult ([facility] 138/2/22/69) Smoking risk assessment performed?: Yes Patient Tobacco Use Status: Current everyday Tobacco user Telehealth Telehealth Telehealth Platform: Telephone Location of provider rendering services: practice address Location of patient: address on file Patient Identification confirmed using: Name, : Yes Telehealth method: voice only Patient verbally consented to treatment: Yes Patient verbally consented to billing insurance company: Yes Patient informed of any privacy concerns related to visit: Yes Minutes spent on Phone/Video with Pt.: 30 Assessment & Plan Assessment & Plan (1) Obesity: Code(s): E66.9 - Obesity, unspecified Category: Medical Qualifiers: Obesity type: due to excess calories Obesity classification: adult class 1 (BMI 30 - 34.9) Serious obesity comorbidity presence: with serious comorbidity Body mass index: BMI 34.0-34.9 Qualified Code(s): E66.811 - Obesity, class 1; E66.09 - Other obesity due to excess calories; Z68.34 - Body mass index [BMI] 34.0-34.9, adult Plan: ?1.? Please buy the body composition scale we discussed and send me weight measurements as soon as possible and then once a week. 2. The best choice would be to purchase a stationary bike at home that can track calories. Let me know if you do so I can give you an exercise plan. Goal is to exercise for 150 minutes per week. 3. Goal is to lose at least 1.5-2lbs per week 4. Goal to lose a minimum of 10% of your weight, which is about 25lbs. Minimum weight goal: 223lbs 5. You have high blood pressure. Please take one per day. Buy a blood pressure monitor and start measuring your blood pressure daily in the morning and let me know the readings if they are below 120/70. 6. I ordered a medication to help you with the weight loss which is called Zepbound. My office will try to authorize it. Please let me know when you receive it so I can give you a meal and exercise plan. Common side effects include nausea, vomiting, constipation, diarrhea, abdominal pain. Please let me know if you develop any of these symptoms. 7. Please track the calories you consume daily and aim not to exceed the 1800 calories per day. Avoid high calorie drinks, fried, or high in fat foods as well as large amount of carbohydrates (sweets, potatoes, rice, or pasta).
== END 2024-08-06 12:04 | disposition home or self-care (01) ==
LOC: HO.HBS 08:13
PROVIDERS: PCP Internal Medicine; Visit Provider Surgery
DX: E66.811 Obesity, class 1 (principal); Z68.34 Body mass index [BMI] 34.0-34.9, adult
CPT/HCPCS: 99203

== ENCOUNTER 2024-12-20 12:32 | Outpatient (AMB) | payer OTHER, SELFPAY ==
--- NOTE | 2024-12-20 12:48 | A.OFFPC_ITS ---
Vital Signs 12/20/24 12:49 12/20/24 12:50 Height 5 ft 11 in 5 ft 11 in Weight 271 lb BMI 37.8 BP 130/80 Blood Pressure Location Lt brachial Lt brachial Position Sitting Sitting Respiration 18 Pulse 75 Pulse Source Pulse Oximeter Temp Source Temporal Artery Scan Pulse Oximetry (%) 96 Oxygen Delivery Method Room Air Room Air Intake Visit Reasons: physical Extractions Technologist Required: No Accompanied by: Self / Same As Patient Allergies lisinopril Adverse Reaction (Intermediate, Verified 12/20/24 13:05) cough Medication List - Last Reconciled 12/20/24 by Elizabeth Pate MD amlodipine 5 mg PO DAILY 90 days atorvastatin 80 mg PO BEDTIME 90 days ibuprofen 800 mg PO Q8H PRN 30 days losartan 100 mg PO DAILY 90 days Tobacco use date assessed: 12/20/24 Dental Screening Dental Screen Date: 12/20/24 Did you have a dental visit in the last 12 months?: No Did you have a dental problem in the last 6 months where you did not have access to dental care?: No Was dental information given to patient?: No HPI HPI Comments History of Present Illness Details The patient is a 54-year-old male presenting with an annual physical examination and preventative care discussion. He has a history of hypertension, managed with losartan and amlodipine, and reports an allergy to lisinopril. The patient is also on atorvastatin for hyperlipidemia. Family history is notable for prostate cancer in his father and colon and breast cancer in his mother. He smokes five cigarettes daily and is considering cessation. [facility] Medical History DJD (degenerative joint disease) BMI 34.0-34.9,adult Obesity Physical exam Screen for colon cancer Chronic GERD BMI 38.0-38.9,adult Impaired glucose tolerance History of alcohol abuse Dyslipidemia Essential hypertension Surgical History History of laparoscopic appendectomy Family History Father Prostate cancer Mother Breast cancer Colon cancer Social History Housing: House Alcohol intake: former Patient Tobacco Use Status: Current everyday Tobacco user Tobacco use type: Cigarette Cigarettes Per Day: 5 e-Cigarette/Vaping Use: Never Used Second Hand Smoke Exposure: No service: No Current occupational status: employed Current occupational exposures/hazards: No Cognitive needs: No Hearing needs: No Vision needs: No Questionnaire PHQ-9 Over the last 2 weeks, how often have you been bothered by any of the following problems? 1. Little interest or pleasure in doing things: not at all 2. Feeling down, depressed, or hopeless: not at all 3. Trouble falling or staying asleep, or sleeping too much: not at all 4. Feeling tired or having little energy: not at all 5. Poor appetite or overeating: not at all 6. Feeling bad about yourself - or that you are a failure or have let yourself or your family down: not at all 7. Trouble concentrating on things, such as reading the newspaper or watching television: not at all 8. Moving or speaking so slowly that other people could have noticed. Or the opposite - being so fidgety or restless that you have been moving around a lot more than usual: not at all 9. Thoughts that you would be better off or of hurting yourself in some way: not at all Total score: 0 Depression Screening Interpretation: Negative Depression Screening Done: Yes 19788 - PHQ-9 Billing: Yes Source: Developed by Drs. Juan Kat, Luisa Bob, Williams Campos and colleagues, with an educational kam from [employer]. Thrive Questionnaire Date Thrive assessed: 12/20/24 I am a: Patient What is your living situation today?: I have a steady place to live Within the past 12 months, did the food you bought not last and you didn't have the money to get more?: Never true Within the past 12 months, did you worry whether your food would run out before you got money to buy more?: Never true Do you have trouble paying for medicines?: No Do you have trouble getting transportation to medical appointments?: No Do you have trouble paying your heating and electricity bill?: No Do you have trouble taking care of your child, family member or friend?: No Do you have trouble with day-to-day activities such as bathing, preparing meals, shopping, managing finances, etc.?: No Are you currently unemployed and looking for a job?: No Are you interested in more education?: No Please select the resources that you would like help with: None Currently or been in a relationship where the following occur: No concerns reported THRIVE Score: 0 AUDIT C Alcohol Use Questionnaire (AUDIT-C) 1. How often do you have a drink containing alcohol?: 2-4 times a month 2. How many drinks containing alcohol do you have on a typical day when you are drinking?: 1 or 2 3. How often do you have six or more drinks on one occasion?: Never Total Score: 2 ISAAC-7 AMB Questionnaire ISAAC-7 Date ISAAC - 7 assessed: 12/20/24 Feeling nervous, anxious, or on edge: 0 = Not at all Not being able to stop or control worryin = Not at all Worrying too much about different things: 0 = Not at all Trouble relaxin = Not at all Being so restless that it is hard to sit still: 0 = Not at all Becoming easily annoyed or irritable: 0 = Not at all Feeling afraid as if something awful might happen: 0 = Not at all Total ISAAC-7 score (0-4 normal; 5-9 mild; 10-14 moderate; 15-21 severe): 0 Source: Developed by Drs. Juan Kat, Luisa Bob, Williams Campos and colleagues, with an educational kam from [employer]. ISAAC-7 Assessment Billing ISAAC-7 Assessment Tool: ISAAC-7 Assessment 95833 Review of Systems Const All systems reviewed & are unremarkable except as noted in HPI and below Card Denies chest pain at rest, Denies chest pain with activity, Denies edema, Denies irregular heart rhythm, Denies claudication, Denies dyspnea, Denies dyspnea on exertion, Denies orthopnea, Denies paroxysmal nocturnal dyspnea and Denies slow heart rate Resp Denies cough, Denies dyspnea and Denies dyspnea on exertion GI Denies abdominal pain, Denies change in bowel habits, Denies excessive flatus, Denies nausea and Denies vomiting Denies urinary hesitancy, Denies urinary incontinence and Denies urinary urgency Musc Denies abnormal gait, Denies atrophy, Denies deformity and Denies limited range of motion Skin/Breast Denies bleeding lesions, Denies changing lesions and Denies rash Neuro Denies abnormal gait, Denies behavioral changes and Denies lack of coordination Psych Denies behavioral changes Physical exam (Primary Care) Vital Signs: Last Vital Signs Pulse 75 12/20/24 12:50 Resp 18 12/20/24 12:49 BP 130/80 12/20/24 12:50 Pulse Ox 96 12/20/24 12:50 Oxygen Delivery Method Room Air 12/20/24 12:50 BMI result Body Mass Index 37.8 BMI Assessment/Plan discussion: High BMI High, discussed plan: lifestyle, weight reduction, dietary and physical activity Tobacco/Smoking Status: Tobacco use Status Tobacco use date assessed 12/20/24 12/20/24 12:51 Patient Tobacco Use Status Current everyday Tobacco 12/20/24 12:51 Tobacco use type Cigarette 12/20/24 12:51 e-Cigarette/Vaping Use Never Used 12/20/24 12:51 Are you ready to quit: No Relapse Prevention: discussed the importance of a supportive environment, discussed extending NRT, discussed negative mood or depression after quitting, weight gain after smoking is common and discussed dietary, exercise and/or lifestyle changes Number of minutes spent counselin CPT code: 18386 - 4-10 Minutes PHQ-9: PHQ-9 Score PHQ-9: Total score 0 12/20/24 12:51 Depression Screening Interpretation: Negative Thrive Assessment: Date of Thrive Assessment Date Thrive assessed 12/20/24 12/20/24 12:51 Currently or been in a relationship where the following occur: No concerns reported [facility] Head: Yes normal to inspection, Yes normocephalic and Yes atraumatic Ears: external ears normal Eyes General: appearance normal, both eyes and all related structures Eyelids: Yes eyelids normal Conjunctivae: conjunctivae normal Neck Neck: Yes normal visual inspection and Yes supple Resp Effort & Inspection: normal respiratory effort Auscultation: clear to auscultation bilaterally Cardio Jugular venous distension: no JVD Rate: regular rate Rhythm: regular rhythm Heart sounds: S1 normal heart sound present and S2 normal heart sound present GI Inspection: Yes normal to inspection Palpation (GI): Soft to palpation and nontender Auscultation: normal bowel sounds Skin General skin exam: no rashes or lesions noted Neuro General: no focal motor deficits Extrem General: Yes full ROM Psych Appearance: grossly normal Coding Level of Care Code Est Pt Prev Care 40-64y(77646) Diagnoses Physical exam Z00.00 Additional Codes ISAAC-7 Assessment Billing - ISAAC-7 Assessment Tool: ISAAC-7 Assessment 44955 ([id number]) PHQ-9 - 27028 - PHQ-9 Billing: Yes ([id number]) Vital Signs *Quality* - CPT code: 32090 - 4-10 Minutes ([id number]) Time Spent (min) 34 Assessment & Plan Assessment & Plan (1) Physical exam: Code(s): Z00.00 - Encounter for general adult medical examination without abnormal findings Category: Medical Plan The patient will be referred to Gastroenterology for a colonoscopy due to his family history of colon cancer. Blood pressure monitoring will continue, with the patient maintaining his current regimen of losartan and amlodipine. Continuation of atorvastatin is advised for hyperlipidemia management. Support for smoking cessation will be provided to assist the patient in quitting tobacco use. Patient was informed and verbally consented to the use of an ambient scribe for clinic note documentation during this visit. Orders: Orders Lipid Panel Today E78.5 - Hyperlipidemia, unspecified Comprehensive [place]. Panel Fast Today Z00.00 - Encounter for general adult medical examination without abnormal findings Referrals Gastroenterology Referral Z12.11 - Encounter for screening for malignant neoplasm of colon Medications: Refilled amlodipine 5 mg PO DAILY 90 tabs 1RF 90 days
[2024-12-20 12:49] VITALS: RESP 18
[2024-12-20 12:50] VITALS: BP 130/80; PULSE 75; O2SAT 96; BMI 37.8
== END 2024-12-20 13:15 | disposition home or self-care (01) ==
LOC: HO.HMCH 12:32
PROVIDERS: PCP Internal Medicine; Visit Provider Internal Medicine
DX: Z00.00 Encounter for general adult medical examination without abnormal findings (principal)

== ENCOUNTER → 2024-12-20 12:32 | Outpatient (BNVA) | payer OTHER, SELFPAY | PROVIDERS: PCP Internal Medicine; Visit Provider Internal Medicine | DX: Z00.00 Encounter for general adult medical examination without abnormal findings (principal); E78.5 Hyperlipidemia, unspecified; I10 Essential (primary) hypertension | CPT/HCPCS: 96127; 99396 ==